=== PATIENT | female | born 1945 | race Caucasian/White ===

== ENCOUNTER → 2016-07-23 | Outpatient (REF) | LOC: ZLAB.WCH 12:48 | DX: Z01.89 Encounter for other specified special examinations (principal) ==

== ENCOUNTER → 2016-07-29 | Outpatient (REF) ==
[2016-07-29 13:43] LABS: THYROID STIMULATING HORMONE 5.29 uIU/mL (0.465-4.680)
== END ==
LOC: ZLAB.WCH 11:40
PROVIDERS: Family Medicine
DX: Z01.89 Encounter for other specified special examinations (principal)

== ENCOUNTER → 2016-08-17 | Outpatient (REF) | LOC: ZLAB.WCH 16:18 | DX: Z01.89 Encounter for other specified special examinations (principal) ==

== ENCOUNTER → 2016-08-24 | Outpatient (REF) | LOC: ZLAB.WCH 15:08 | DX: Z01.89 Encounter for other specified special examinations (principal) ==

== ENCOUNTER → 2017-01-25 | Outpatient (CLI) | payer MEDICARE | LOC: MC.RAD 09:41 | DX: Z12.31 Encounter for screening mammogram for malignant neoplasm of breast (principal) ==

== ENCOUNTER → 2017-03-15 | Outpatient (REF) ==
[2017-03-15 19:03] LABS: THYROID STIMULATING HORMONE 4.15 uIU/mL (0.465-4.680)
== END ==
LOC: ZLAB.WCH 18:02
PROVIDERS: Family Medicine
DX: Z01.89 Encounter for other specified special examinations (principal)

== ENCOUNTER → 2017-04-14 | Outpatient (REF) | LOC: ZLAB.WCH 08:39 | DX: Z01.89 Encounter for other specified special examinations (principal) ==

== ENCOUNTER → 2017-09-15 | Outpatient (REF) | LOC: ZLAB.WCH 08:31 | DX: Z01.89 Encounter for other specified special examinations (principal) ==

== ENCOUNTER → 2017-10-15 | Outpatient (REF) ==
[2017-10-15 16:49] LABS: THYROID STIMULATING HORMONE 10.5 uIU/mL (0.465-4.680)
== END ==
LOC: ZLAB.WCH 15:47
PROVIDERS: Family Medicine
DX: Z01.89 Encounter for other specified special examinations (principal)

== ENCOUNTER → 2017-11-30 | Outpatient (REF) | LOC: ZLAB.WCH 14:32 | DX: Z01.89 Encounter for other specified special examinations (principal) ==

== ENCOUNTER → 2017-11-30 | Outpatient (REF) ==
[2017-11-30 14:54] LABS: BILIRUBIN,TOTAL 0.9 mg/dL (0.0-1.0); CALCIUM 8.4 mg/dL (8.4-10.2); CREATININE, serum 1.33 mg/dL (0.52-1.25); POTASSIUM 3.6 mmol/L (3.4-5.0); TOTAL PROTEIN 6.2 gm/dL (6.4-8.2)
== END ==
LOC: ZLAB.WCH 14:35
PROVIDERS: Physician Assistant
DX: Z01.89 Encounter for other specified special examinations (principal)